=== PATIENT | male | born 1955 | race Two or more races ===

== ENCOUNTER 2020-10-27 06:00 | Day surgery (SDC) | payer OTHER ==
[~2020-10-27 06:00] MED LIST: BACLOFEN20 MG PO; DECADRON4 MG PO; VOLTAR PO; ZESTRIL40 M1 PO
== END 2020-10-27 13:45 | disposition home or self-care (01) ==
LOC: CIR.AMB 06:00
PROVIDERS: ATTEND Orthopaedic Surgery Hand Surgery
DX: G56.01 Carpal tunnel syndrome, right upper limb (principal); Z20.822 Contact with and (suspected) exposure to COVID-19

== ENCOUNTER 2021-05-04 05:39 | Day surgery (SDC) | payer OTHER | END 2021-05-04 11:50 | disposition home or self-care (01) | LOC: CIR.AMB 05:39 | PROVIDERS: ATTEND Orthopaedic Surgery Hand Surgery | DX: G56.02 Carpal tunnel syndrome, left upper limb (principal); Z20.822 Contact with and (suspected) exposure to COVID-19 ==

== ENCOUNTER 2022-02-27 19:37 | Emergency (ER) | payer OTHER ==
[~2022-02-27] VITALS: Ht 177.8 cm; Wt 77.1 kg
[2022-02-27] MEDS ORDERED: MEDROLPACK PO (23:48)
[2022-02-27] MEDS ORDERED: KETO10TA2 PO (23:48)
[2022-02-27] MEDS ORDERED: NORFLEX100MG PO (23:48)
== END 2022-02-28 00:05 | disposition home or self-care (01) ==
LOC: ER 19:37
DX: M25.561 Pain in right knee (principal); I10 Essential (primary) hypertension

== ENCOUNTER 2022-03-16 14:18 | Inpatient (IN) | payer OTHER ==
[~2022-03-16] VITALS: Ht 177.8 cm; Wt 72.6 kg
[~2022-03-16 14:18] MED LIST changes: +KETO10TA2 PO; +MEDROLPACK PO; +NORFLEX100MG PO
[2022-03-29] MEDS ORDERED: ROSUVASTATIN CA10 MG (09:09)
== END 2022-03-31 17:07 | DRG 470 ==
LOC: SURG 03-22 08:00 → O/R 03-29 06:15 → SURG 03-29 08:00 → SURH 03-29 13:23
PROVIDERS: ADMIT Orthopaedic Surgery; ATTEND Orthopaedic Surgery
PROC: 0SRC0J9 Replacement of Right Knee Joint with Synthetic Substitute, Cemented, Open Approach (ICD-10-PCS; principal; 2022-03-29 11:30)
DX: M17.11 Unilateral primary osteoarthritis, right knee (principal); D62 Acute posthemorrhagic anemia; I10 Essential (primary) hypertension; Z96.651 Presence of right artificial knee joint; Z20.822 Contact with and (suspected) exposure to COVID-19

== ENCOUNTER 2022-03-24 12:41 | Outpatient (CLI) | payer OTHER | END 2022-03-24 12:44 | disposition home or self-care (01) | LOC: LAB 12:41 | PROVIDERS: ATTEND Orthopaedic Surgery | DX: Z03.818 Encounter for observation for suspected exposure to other biological agents ruled out (principal) ==

== ENCOUNTER 2022-07-13 08:42 | Outpatient (CLI) | payer OTHER ==
[~2022-07-13 08:42] MED LIST changes: +ROSUVASTATIN CA10 MG
== END 2022-07-13 08:47 | disposition home or self-care (01) ==
LOC: RAD 08:42
PROVIDERS: ATTEND Orthopaedic Surgery
DX: M25.562 Pain in left knee (principal); M25.561 Pain in right knee

== ENCOUNTER 2023-02-14 09:00 | Inpatient (IN) | payer OTHER ==
[~2023-02-14] VITALS: Ht 177.8 cm; Wt 79.4 kg
[2023-02-21] MEDS ORDERED: NAPROXEN500 MG (08:05)
[2023-02-21] MEDS ORDERED: ATORVASTATIN CA10 MG (08:05)
== END 2023-02-23 16:23 | DRG 470 ==
LOC: SURH 02-21 05:30 → O/R 02-21 05:30 → SURH 02-21 07:00 → O/R 02-21 09:40 → SURH 02-21 09:45
PROVIDERS: ADMIT Orthopaedic Surgery; ATTEND Orthopaedic Surgery
PROC: 0SRD0JZ Replacement of Left Knee Joint with Synthetic Substitute, Open Approach (ICD-10-PCS; principal; 2023-02-21 09:45)
DX: M17.12 Unilateral primary osteoarthritis, left knee (principal); D62 Acute posthemorrhagic anemia; I10 Essential (primary) hypertension